=== PATIENT | male | born 1995 | race Caucasian/White ===

== ENCOUNTER 2021-06-09 18:32 | Emergency (ER) | payer OTHER, SELFPAY ==
--- NOTE | ~2021-06-09 | XR_ITS ---
EXAMINATION: XR foot RT min 3V EXAM DATE: 06/09/2021 19:00 INDICATION: Painful bump on medial distal plantar foot, no inj . TECHNIQUE: Right foot dorsoplantar, lateral and oblique projections obtained and reviewed. There is no prior study for comparison. FINDINGS: Right metatarsal bones unremarkable. There are no acute fractures or dislocations identifi ed. There is no subcutaneous gas. The soft tissue is unremarkable. There are no radiopaque foreig n bodies. IMPRESSION: 1. Unremarkable right foot exam. Reviewed, dictated and finalized at location A.
[2021-06-09 18:47] VITALS: BP 137/74; PULSE 84; RESP 18; TEMP 37.4; O2SAT 100
--- NOTE | 2021-06-09 18:51 | ED.EXTPRO ---
HPI - Extremity Problem General Stated complaint: right foot pain Time Seen by Provider: 06/09/21 18:51 Source: patient and family Mode of arrival: ambulatory Limitations: no limitations History of Present Illness HPI Narrative: patient presents with pain to the medial distal plantar side of his right foot. patient states he did a lot or walking with his sister last week. patient has had increasing pain with ambulation to his foot since then. Location: right Associated symptoms: denies other symptoms Related Data Home Medications Medication Instructions Recorded Confirmed No Home Medications 06/09/21 06/09/21 Allergies Allergy/AdvReac Type Severity Reaction Status Date / Time No Known Allergies Allergy Verified 06/09/21 18:51 Review of Systems Review of Systems: Narrative: CONSTITUTIONAL: Denies fever, chills, or sweats. EYES: Denies visual changes, redness, or discharge. ENT: Denies rhinorrhea, congestion, sore throat, or otalgia. CARDIOVASCULAR: Denies chest pain, palpitations, or edema. RESPIRATORY: Denies cough or dyspnea. GASTROINTESTINAL: Denies abdominal pain, nausea, vomiting, or diarrhea. GENITOURINARY: Denies dysuria or hematuria. SKIN: Denies rash or itching. MUSCULOSKELETAL: Denies back pain, joint pain, or myalgia. NEUROLOGIC: Denies headache, numbness, or weakness. PSYCHIATRIC: Denies anxiety or depression. Constitutional: Comments: At time of signature, agree with nursing past medical, surgical, social and family history. There is no relevant family history pertinent to the presenting complaint Exam Narrative: Exam Narrative: GENERAL: Well-appearing, well-nourished, and in no acute distress. HEAD: Normocephalic, atraumatic. EYES: PERRLA and EOMI. ENT: Nares clear, no rhinorrhea or epistaxis. Mucous membranes moist. NECK: Supple. CHEST: Clear to auscultation. No respiratory distress. HEART: Regular rate and rhythm. No murmur heard. Normal peripheral pulses. ANKLE EXAM SKIN INTACT. NORMAL DP PULSE, NORMAL CAP REFILL. NORMAL SENSATION. ABDOMEN: Soft, nontender, nondistended, normal active bowel sounds. EXTREMITIES: Normal range of motion. No edema. SKIN: Warm, dry, no rash. NEURO: No focal deficits. Alert and oriented x3. Matthew Coma Scale Eye Opening: Spontaneous 4 [place] Coma Scale Motor: Obeys Commands 6 [place] Coma Scale Verbal: Oriented 5 [place] Coma Scale Total 15 Course Vital Signs Vital signs: Vital Signs Temperature 37.4 C 06/09/21 18:47 Pulse Rate 84 06/09/21 18:47 Respiratory Rate 18 06/09/21 18:47 Blood Pressure 137/74 06/09/21 18:47 Pulse Oximetry 100 06/09/21 18:47 Temperature 37.4 C 06/09/21 18:47 Pulse Rate 84 06/09/21 18:47 Respiratory Rate 18 06/09/21 18:47 Blood Pressure 137/74 06/09/21 18:47 Pulse Oximetry 100 06/09/21 18:47 Please [facility] schedule a followup visit with your personal physician for further evaluation and treatment. Including recheck and discussion of your blood pressure. If your symptoms persist, change or worsen significantly before you can contact your personal physician then please, without delay, go to the emergency department for further evaluation Addressed elevated BP today. Today's blood pressure higher than recommended range. 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 Currently patient denies headache, dizziness, vision changes, CP or shortness of breath. DISCUSSED WITH PATIENT, X-RAY FINDINGS AND THAT X-RAYS WERE NEGATIVE FOR FRACTURE OR DISLOCATIONS. X-RAYS CANNOT RULE OUT TENDON, LIGAMENT, OR SOFT TISSUE STRUCTURE INJURIES AND IF SYMPTOMS PERSIST OR WORSEN, FURTHER EVALUATION MAY BE WARRANTED FOR POTENTIAL IMAGING. ADVISED REST, ICE, COMPRESSION, AND ELEVATION. IF PRESCRIBED ANY MEDICATIONS, TAKE DIRECTED. IF PRESCRIBED MUSCLE RELAXERS, DO NOT DRINK ALCOHOL, DRIVE, OR OPERATE ANY HEAVY MACHINERY WHILE TAKING. INSTRUCTED ON WHEN TO F/U
== END 2021-06-09 19:25 | disposition home or self-care (01) ==
PROVIDERS: Emergency Provider Nurse Practitioner Family; PCP Family Medicine
DX: S90.31XA Contusion of right foot, initial encounter (principal); X58.XXXA Exposure to other specified factors, initial encounter
CPT/HCPCS: 73630; 99213; G0463

== ENCOUNTER 2021-11-21 14:58 | Emergency (ER) | payer OTHER, SELFPAY ==
[2021-11-21 15:16] VITALS: BP 137/75; PULSE 81; RESP 18; TEMP 36.7; O2SAT 99
--- NOTE | 2021-11-21 15:45 | ED.URI ---
HPI - URI/Sore Throat General Chief Complaint: Upper Respiratory Infection Stated Complaint: Sore Throat/Headache/Ear Pain Source: patient and RN notes reviewed Mode of arrival: ambulatory History of Present Illness HPI Narrative: 25-year-old male presented for complaint of headache, earache, and sore throat for about 1 week. He states his sore throat was worse today so he wanted to seek treatment. He denies nausea, vomiting, fever or chills. Denies shortness of breath, chest pain, or dizziness. states girlfriend recently had similar sx with neg covid strep and flu tests. Related Data Allergies Allergy/AdvReac Type Severity Reaction Status Date / Time No Known Allergies Allergy Verified 06/09/21 18:51 Review of Systems Review of Systems: All systems reviewed & are unremarkable except as noted in HPI and below PMFSH Family History Family History (Updated 11/21/21 @ 15:52 by Kaity Floyd, [employer]) Other Family history non-contributory Exam Narrative: GENERAL: Well-appearing, well-nourished, and in no acute distress. HEAD: Normocephalic, atraumatic. EYES: EOMI. No redness or drainage. Conjunctivae normal. ENT: Mucous membranes pink and moist. Nares clear. No rhinorrhea. TMs normal bilaterally; left canal erythematous. Throat normal. Uvula midline. NECK: Normal AROM. Supple. No lymphadenopathy. CHEST: No respiratory distress. Clear to auscultation. HEART: Regular rate and rhythm. No murmur appreciated. ABDOMEN: Soft, nontender, nondistended, MUSCULOSKELETAL: No bony tenderness. EXTREMITIES: Normal range of motion. No edema. SKIN: Warm, dry, no rash. Capillary refill normal. Normal skin turgor. NEURO: No focal deficits. Alert and oriented x3. Gait steady. PSYCH: Normal affect. No signs of depression or anxiety. Course Course Emergency Course: Strep swab negative. Covid swab sent out. Discharged with instructions on supportive care for viral syndrome. Level of Care: Express Care Visit Vital Signs Vital signs: Vital Signs Temperature 98.1 F 11/21/21 15:16 Pulse Rate 81 11/21/21 15:16 Respiratory Rate 18 11/21/21 15:16 Blood Pressure 137/75 11/21/21 15:16 Pulse Oximetry 99 11/21/21 15:16 Temperature 98.1 F 11/21/21 15:16 Pulse Rate 81 11/21/21 15:16 Respiratory Rate 18 11/21/21 15:16 Blood Pressure 137/75 11/21/21 15:16 Pulse Oximetry 99 11/21/21 15:16 MDM - URI/Sore Throat Differential Diagnosis Differential diagnosis: Likely upper respiratory infection, otitis media and sinusitis Lab Data Attestation: I reviewed the patient's lab results. Labs: Strep Screen Presumptive Negative *(Reference Range: Negative)* Discharge Plan Discharge Clinical Impression: Viral infection, Encounter for laboratory testing for COVID-19 virus Patient Disposition: Home, Self-Care Condition: Stable Instructions: Antibiotic Form, Viral Syndrome (ED), COVID-19 (Coronavirus Disease 2019) (ED) Additional Instructions: strep swab was negative covid swab is pending. Please remain quarantine until your Covid results are back. Should the results be positive follow your employer's policy for returning to work. [id number] treatment, Tylenol or ibuprofen for pain. Soft foods, cool liquids, and warm tea with honey for sore throat. Prescriptions: No Action ibuprofen 800 mg tablet 800 mg PO TID 3 Days Qty: 9 RF: 0 Follow-up/Referrals: Agata,Jorge Camacho MD [Primary Care Provider] - Time of Disposition: 15:48
[2021-11-22 22:11] LABS: SARS-CoV-2 RNA PCR Negative
== END 2021-11-21 16:09 | disposition home or self-care (01) ==
PROVIDERS: Emergency Provider Nurse Practitioner Family; PCP Family Medicine
DX: B34.9 Viral infection, unspecified (principal); Z20.822 Contact with and (suspected) exposure to COVID-19
CPT/HCPCS: 87081; 87880; 99213; C9803; G0463; U0003; U0005

== ENCOUNTER 2022-01-29 17:40 | Emergency (ER) | payer OTHER, SELFPAY ==
--- NOTE | ~2022-01-29 | XR_ITS ---
XR foot RT min 3V DATE: 01/29/2022 17:59 INDICATION: Lateral dorsal and plantar and distal metatarsal pain TECHNIQUE: 4 views COMPARISON: None FINDINGS: There is joint space narrowing at the first metatarsophalangeal joint. No fracture or dislo cation, periosteal reaction or bone destruction. No erosive change. IMPRESSION: Mild narrowing at first metatarsophalangeal joint Reviewed, dictated and finalized at location A.
[2022-01-29 17:46] VITALS: BP 142/75; PULSE 80; RESP 14; TEMP 36.8; O2SAT 99
[2022-01-29 17:55] VITALS: BP 142/75; PULSE 80; RESP 14; TEMP 36.8; O2SAT 99
--- NOTE | 2022-01-29 18:21 | ED.LOWEXIN ---
HPI - Extremity Injury (Lower) General Chief Complaint: Extremity Injury, Lower Stated Complaint: Right Foot Pain Time Seen by Provider: 01/29/22 18:22 Source: patient, RN notes reviewed and old records reviewed Mode of arrival: ambulatory Limitations: no limitations History of Present Illness HPI Narrative: 26 year old male accompanied by significant other presents to express care with complaints of dorsal lateral right foot discomfort and some to the bottom of his foot since the 4th of this month which is aggravated by ambulation. Patient states that he knows of no injury to his right foot but after he is on his feet at work walking pain increases as day progresses. He works at [employer] and he wears boot at work daily. Patient has no obvious deformity to right foot, no swelling or redness, denies any tingling or numbness to his foot with strong pedal pulses. MD complaint: other (foot pain right) Onset (ago): day(s) (12 days) Injury: Right: foot (lateral and bottom of right foot) Severity: moderate Severity scale (1-10): 4 Relieving factors: rest Exacerbating factors: weight bearing Related Data Allergies Allergy/AdvReac Type Severity Reaction Status Date / Time No Known Allergies Allergy Verified 01/29/22 17:54 Review of Systems Review of Systems: CONSTITUTIONAL: Denies fever, chills, or sweats. EYES: Denies visual changes, redness, or discharge. ENT: Denies rhinorrhea, congestion, sore throat, or otalgia. CARDIOVASCULAR: Denies chest pain, palpitations, or edema. RESPIRATORY: Denies cough or dyspnea. GASTROINTESTINAL: Denies abdominal pain, nausea, vomiting, or diarrhea. GENITOURINARY: Denies dysuria or hematuria. SKIN: Denies rash or itching. MUSCULOSKELETAL: Denies back pain,positive for dorsal lateral right foot discomfort and pain to bottom of his right foot also occasionally NEUROLOGIC: Denies headache, numbness, or weakness. PSYCHIATRIC: Denies anxiety or depression. All systems reviewed & are unremarkable except as noted in HPI and below PMFSH Past Medical History Medical History (Updated 01/29/22 @ 23:51 by Beth Singletary NP) Asthma Fracture of finger right middle Fracture of left wrist Surgical History Surgical History (Updated 01/29/22 @ 23:50 by Beth Singletary NP) No history of previous surgery Family History Family History (Updated 11/21/21 @ 15:53 by Kaity Floyd APRN) Other Family history non-contributory Social History Social History (Updated 01/29/22 @ 23:49 by Beth Singletary NP) Smoking status: Never smoker Alcohol intake: current Alcohol use details: social Substance use type: does not use Living arrangements: with family Gender identity (if verbalized by the patient): Male Exam Narrative: GENERAL: Well-appearing, well-nourished, and in no acute distress. HEAD: Normocephalic, atraumatic. EYES: PERRLA and EOMI. ENT: Nares clear, no rhinorrhea or epistaxis. Mucous membranes moist.TM's normal with good light reflex, throat pink with no lesions or exudates. NECK: Supple.no lymphadenopathy CHEST: Clear to auscultation. No respiratory distress.SAO2 99% on room air HEART: Regular rate and rhythm. No murmur heard. Normal peripheral pulses. ABDOMEN: Soft, nontender, nondistended, normal active bowel sounds. EXTREMITIES: Normal range of motion. No edema.Pain to dorsal lateral aspet of right foot and some pain to bottom of foot for past 12 days, no swelling or redness noted adequate mobility, sensation and circulation is intact SKIN: Warm, dry, no rash. NEURO: No focal deficits. Alert and oriented x3. Course Course Level of Care: Express Care Visit Vital Signs Vital signs: Vital Signs Temperature 36.8 C 01/29/22 17:46 Pulse Rate 80 01/29/22 17:46 Respiratory Rate 14 01/29/22 17:46 Blood Pressure 142/75 H 01/29/22 17:46 Pulse Oximetry 99 01/29/22 17:46 Temperature 36.8 C 01/29/22 17:55 Pulse Rate 80 01/29/22 17:55 Respiratory
== END 2022-01-29 18:43 | disposition home or self-care (01) ==
PROVIDERS: Emergency Provider Registered Nurse; PCP Family Medicine
DX: M77.8 Other enthesopathies, not elsewhere classified (principal); J45.909 Unspecified asthma, uncomplicated
CPT/HCPCS: 73630; 99213; G0463